=== PATIENT | male | born 1990 | race African-American/Black ===

== ENCOUNTER 2022-12-26 11:35 | Emergency (ER) | payer OTHER ==
[~2022-12-26] VITALS: Ht 170.2 cm; Wt 84.1 kg
[2022-12-26 11:36] VITALS: BP 142/77
[2022-12-26] MEDS ORDERED: GABA-1216 PO (11:38)
[2022-12-26] MEDS ORDERED: AZITHROMYCIN 500 MG TABLET PO ONE (12:45)
[2022-12-26] MEDS ORDERED: LIDOCAINE/PF 1% 2 ML VIAL IM ONE (12:45)
[2022-12-26] MEDS ORDERED: CefTRIAXone SODIUM 1 GM/VIAL IM ONE (12:45)
[2022-12-26 13:05] LABS: APPEARANCE,URINE CLEAR (CLEAR); BILIRUBIN,URINE NEGATIVE (NEGATIVE); GLUCOSE, URINE (UA) NEGATIVE (NEGATIVE); KETONES,URINE NEGATIVE (NEGATIVE); LEUKOCYTE ESTERASE ,URINE MODERATE (NEGATIVE); NITRATE,URINE NEGATIVE (NEGATIVE); OCCULT BLOOD,URINE NEGATIVE (NEGATIVE); PROTEIN,URINE NEGATIVE (NEGATIVE); SPECIFIC GRAVITIY, URINE 1.016 (1.003-1.030); UROBILINOGEN,URINE <=1.0 mg/dL (<=1.0)
[2022-12-26 13:06] LABS: BACTERIA,URINE Few /HPF (None Seen); RBC,URINE None Seen /HPF (0-2); SQUAMOUS EPITHELIAL CELL,UR Few /LPF (None Seen)
[2022-12-26] MEDS ORDERED: DOXY-354 PO (13:22)
== END 2022-12-26 13:43 | disposition home or self-care (01) ==
LOC: EMS 11:36
DX: N34.2 Other urethritis (principal)
CPT/HCPCS: 99283; 81001; 87086; 87186; 87491; 87591; 96372; 87081; J0696; J3490; Q9967